=== PATIENT | female | born 2000 | race Caucasian/White ===

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

== ENCOUNTER 2019-07-16 21:02 | Emergency (ER) | payer OTHER, BC ==
[~2019-07-16] VITALS: Ht 172.7 cm; Wt 68.0 kg
[~2019-07-16 21:02] MED LIST: BIRTH CONTROLL; FLUO10
[2019-07-16 21:53] LABS: Source, Urine Clean Catch
[2019-07-16 21:59] LABS: Appearance, Urine Clear (Clear); Bilirubin, Urine Neg (Neg); Blood, Urine 5+ (Neg); Color, Urine Yellow (P-Yellow); Glucose Qualitative, Urine Neg (Neg); Ketones, Urine Neg (Neg); Leukocyte Esterase, Urine Neg (Neg); Nitrite, Urine Neg (Neg); Protein, Urine Neg (Neg); Specific Gravity, Urine 1.005 (1.003-1.022); Urobilinogen, Urine NORM (Normal)
[2019-07-16 22:04] LABS: Bacteria Not Seen /hpf; Red Blood Cells, Urine 25-50 /hpf (0-2); Squamous Epithelial Cells Few /hpf (Few); White Blood Cells, Urine Rare /hpf (0-5)
[2019-07-16 22:06] LABS: BASOPHILS ABSOLUTE AUTO 0.03 K/mm3 (0.00-0.23); BASOPHILS PERCENT AUTO 1 % (0-2); EOSINOPHILS ABSOLUTE AUTO 0.06 K/mm3 (0.00-0.68); EOSINOPHILS PERCENT AUTO 1 % (0-6); Hematocrit 42.6 % (33.0-51.0); Hemoglobin 14.3 g/dL (11.5-16.0); IMMATURE GRAN ABSOLUTE AUTO 0.01 K/mm3 (0.00-0.10); IMMATURE GRAN PERCENT AUTO 0 % (0-1); LYMPHOCYTES PERCENT AUTO 42 % (21-46); MONOCYTES ABSOLUTE AUTO 0.27 K/mm3 (0.16-1.47); MONOCYTES PERCENT AUTO 6 % (4-13); Mean Corpuscular HGB 30.2 pg (26.0-34.0); Mean Corpuscular HGB Conc 33.6 g/dL (31.5-36.5); Mean Corpuscular Volume 90 fL (80-100); Mean Platelet Volume 9.8 fL (9.1-12.4); NEUTROPHILS ABSOLUTE AUTO 2.42 K/mm3 (1.96-9.15); NEUTROPHILS PERCENT AUTO 51 % (41-73); Platelet Count 276 K/mm3 (150-400); RDW Coefficient Variation 11.7 % (11.7-14.2); RDW Standard Deviation 38.5 fL (35.1-46.3); Red Blood Cell Count 4.73 M/mm3 (3.80-5.20); White Blood Cell Count 4.79 K/mm3 (4.00-11.30)
[2019-07-16 22:23] LABS: Anion Gap 5 mmol/L (6-16); Blood Urea Nitrogen 12 mg/dL (8-24); Bun/Creatinine Ratio 15.4 (12.0-20.0); CO2, Blood 28 mmol/L (21-32); Calcium, Blood 9.2 mg/dL (8.5-10.1); Chloride, Blood 106 mmol/L (98-108); Creatinine, Blood 0.78 mg/dL (0.40-1.00); Glomerular Filtration Rate >60 (60-); Glucose, Blood 89 mg/dL (70-99); Potassium, Blood 3.8 mmol/L (3.5-5.5); Sodium, Blood 139 mmol/L (136-145)
== END 2019-07-16 23:45 | disposition home or self-care (01) ==
LOC: ER 21:02
PROVIDERS: Emergency Medicine
DX: T83.39XA Other mechanical complication of intrauterine contraceptive device, initial encounter (principal); N83.201 Unspecified ovarian cyst, right side
CPT/HCPCS: 36415; 58301; 76830; 76856; 80048; 81001; 81025; 85025; 99284-25

== ENCOUNTER → 2020-08-23 | Outpatient (CLI) | payer BC, OTHER ==
[2020-08-26 02:10] LABS: CHLAMYDIA TRACHOMATIS, NAA Negative (Negative)
== END | disposition home or self-care (01) ==
LOC: LAB SHORT 17:35 → LAB EV 17:35
PROVIDERS: Physician Assistant Medical
DX: N89.8 Other specified noninflammatory disorders of vagina (principal); R82.81 Pyuria
CPT/HCPCS: 87070; 87086; 87205; 87491; 87591

== ENCOUNTER → 2020-10-28 | Outpatient (CLI) | payer BC, OTHER ==
[2020-10-29 10:14] LABS: Candida species (DNA Probe) Negative (NEGATIVE); G. vaginalis (DNA Probe) Negative (NEGATIVE); T. vaginalis (DNA Probe) Negative (NEGATIVE)
== END | disposition home or self-care (01) ==
LOC: LAB 18:24 → LAB SHORT 18:24
PROVIDERS: Obstetrics & Gynecology
DX: N89.8 Other specified noninflammatory disorders of vagina (principal)
CPT/HCPCS: 87480; 87510; 87660

== ENCOUNTER → 2021-04-14 | Outpatient (CLI) | payer BC, OTHER | END | disposition home or self-care (01) | LOC: LAB SHORT 19:10 | DX: Z34.03 Encounter for supervision of normal first pregnancy, third trimester (principal) | CPT/HCPCS: 82950 ==

== ENCOUNTER → 2021-05-12 | Outpatient (CLI) | payer BC, OTHER | LOC: LAB SHORT 17:40 | DX: Z34.03 Encounter for supervision of normal first pregnancy, third trimester (principal) | CPT/HCPCS: 87081; 87150 ==

== ENCOUNTER 2021-05-29 19:54 | Inpatient (IN) | payer BC, OTHER ==
[~2021-05-29] VITALS: Ht 172.7 cm; Wt 95.5 kg
[2021-05-29] MEDS ORDERED: PRENATAL TABLE1 EAC2 PO (20:35)
[2021-05-29 20:36] LABS: BASOPHILS ABSOLUTE AUTO 0.02 K/mm3 (0.00-0.23); BASOPHILS PERCENT AUTO 0 % (0-2); EOSINOPHILS ABSOLUTE AUTO 0.03 K/mm3 (0.00-0.68); EOSINOPHILS PERCENT AUTO 1 % (0-6); Hematocrit 29.8 % (33.0-51.0); Hemoglobin 9.8 g/dL (11.5-16.0); IMMATURE GRAN ABSOLUTE AUTO 0.01 K/mm3 (0.00-0.10); IMMATURE GRAN PERCENT AUTO 0 % (0-1); LYMPHOCYTES ABSOLUTE AUTO 1.69 K/mm3 (0.84-5.20); LYMPHOCYTES PERCENT AUTO 26 % (21-46); MONOCYTES ABSOLUTE AUTO 0.41 K/mm3 (0.16-1.47); MONOCYTES PERCENT AUTO 6 % (4-13); Mean Corpuscular HGB Conc 32.9 g/dL (31.5-36.5); Mean Corpuscular Volume 88 fL (80-100); Mean Platelet Volume 11.6 fL (9.1-12.4); NEUTROPHILS ABSOLUTE AUTO 4.23 K/mm3 (1.96-9.15); NEUTROPHILS PERCENT AUTO 66 % (41-73); Platelet Count 226 K/mm3 (150-400); RDW Coefficient Variation 12.5 % (11.7-14.2); RDW Standard Deviation 40.4 fL (35.1-46.3); Red Blood Cell Count 3.38 M/mm3 (3.80-5.20); White Blood Cell Count 6.39 K/mm3 (4.00-11.30)
[2021-05-29] MEDS ORDERED: Calcium Carbon500 MG (20:36)
[2021-05-29] MEDS ORDERED: ONDA4 PO (20:37)
[2021-05-29 21:12] LABS: Influenza A, PCR NEGATIVE (NEGATIVE); Influenza B, PCR NEGATIVE (NEGATIVE); Resp Syncytial Virus, PCR NEGATIVE (NEGATIVE); SARS-Cov-2 (COVID-19) PCR, MMC NEGATIVE (NEGATIVE)
--- NOTE | 2021-05-30 18:14 | NUR ---
PT HAD FULL BLADDER PRIOR TO SHOWERING, PT PASSED BLOOD CLOTS WHILE IN SHOWER AND WAS FIRM WITH FUNDAL MASSAGE.
--- NOTE | 2021-05-31 07:18 | NUR ---
Assumed care Rept from Jeff Bhatti RN, Pt frank cabezas
[2021-05-31] MEDS ORDERED: ACET500 PO (13:59)
[2021-05-31] MEDS ORDERED: Acetaminophen650 M1 PO ×2 (14:00→14:07)
[2021-05-31] MEDS ORDERED: IBUP200 PO (14:07)
--- NOTE | 2021-05-31 16:35 | NUR ---
DISCHARGE TEACHING COMPLETED, QUESTIONS ANSWERED, READY FOR DISCHARGE, WILL CALL WHEN NB IN CAR SEAT AND DAD HAS MOVED CAR AROUND
--- NOTE | 2021-05-31 16:50 | NUR ---
DISCHARGE TO HOME WITH NB
== END 2021-05-31 16:50 | disposition home or self-care (01) | DRG 807 ==
LOC: OBS 19:54 → BC 20:07
PROVIDERS: ADMIT Obstetrics & Gynecology
PROC: 10E0XZZ Delivery of Products of Conception, External Approach (ICD-10-PCS; principal; 2021-05-30)
PROC: 3E0R3BZ Introduction of Anesthetic Agent into Spinal Canal, Percutaneous Approach (ICD-10-PCS; 2021-05-30)
PROC: 00HU33Z Insertion of Infusion Device into Spinal Canal, Percutaneous Approach (ICD-10-PCS; 2021-05-30)
PROC: 10907ZC Drainage of Amniotic Fluid, Therapeutic from Products of Conception, Via Natural or Artificial Opening (ICD-10-PCS; 2021-05-30)
PROC: 0UQMXZZ Repair Vulva, External Approach (ICD-10-PCS; 2021-05-30)
DX: O99.824 Streptococcus B carrier state complicating childbirth (principal); Z37.0 Single live birth; Z3A.39 39 weeks gestation of pregnancy; Z20.822 Contact with and (suspected) exposure to COVID-19; O71.82 Other specified trauma to perineum and vulva; Z79.899 Other long term (current) drug therapy; Z28.21 Immunization not carried out because of patient refusal; Z14.8 Genetic carrier of other disease
CPT/HCPCS: 0241U; 36415; 51702; 85025; 86850; 86900; 86901; A9270; J0290; J1885; J2001; J3010; J3430; J7120

== ENCOUNTER → 2022-04-03 | Outpatient (CLI) | payer BC, OTHER ==
[~2022-04-03] MED LIST changes: +ACET500 PO; +Acetaminophen650 M1 PO; +Calcium Carbon500 MG; +IBUP200 PO; +ONDA4 PO; +PRENATAL TABLE1 EAC2 PO
[2022-04-03 20:30] LABS: Candida species (DNA Probe) Negative (NEGATIVE); G. vaginalis (DNA Probe) Negative (NEGATIVE); T. vaginalis (DNA Probe) Negative (NEGATIVE)
[2022-04-05 07:11] LABS: HIV AB/P24 AG SCREEN Non Reactive (Non Reactive)
[2022-04-06 04:07] LABS: CHLAMYDIA TRACHOMATIS, NAA Negative (Negative)
== END | disposition home or self-care (01) ==
LOC: LAB SHORT 18:00 → LAB 18:00
PROVIDERS: Physician Assistant
DX: Z20.2 Contact with and (suspected) exposure to infections with a predominantly sexual mode of transmission (principal)
CPT/HCPCS: 86592; 86695; 86696; 87070; 87205; 87389; 87480; 87491; 87510; 87591; 87660

== ENCOUNTER → 2022-09-06 | Outpatient (CLI) | payer BC, OTHER | END | disposition home or self-care (01) | LOC: LAB 12:00 → LAB SHORT 12:00 | DX: L08.0 Pyoderma (principal) | CPT/HCPCS: 87070; 87205 ==

== ENCOUNTER → 2023-01-08 | Outpatient (CLI) | payer BC, OTHER | LOC: LAB 08:58 → LAB SHORT 08:58 | DX: L08.0 Pyoderma (principal) | CPT/HCPCS: 87070; 87205 ==

== ENCOUNTER 2023-04-18 10:55 | Day surgery (SDC) | payer BC, OTHER ==
[~2023-04-18] VITALS: Ht 170.2 cm; Wt 75.5 kg
[~2023-04-18 10:55] MED LIST changes: +BUPR100; +ESTROSTEP FE PO
--- NOTE | 2023-04-18 11:39 | NUR ---
04/18/23 1139 Roslyn Kohler PT COMFORTABLE IN BED. NO QUESTIONS OR CONCERNS AT THIS TIME. CALL LIGHT WITHIN REACH. PT HAS PERSONAL PHONE.
--- NOTE | 2023-04-18 13:26 | NUR ---
04/18/23 1326 Castro Rubalcava ROPIVACAINE 0.5% 20 MLS MIXED & VERIFIED W/ EPI 0.10 ML (1MG/ML), PER ORDER, TO MAKE ROPIVACAINE 0.5% 1:200,000 FOR INJECTION AT OPSITE BY DR GALICIA.
[2023-04-18 14:32] VITALS: BP 125/76
--- NOTE | 2023-04-18 15:29 | NUR ---
04/18/23 1529 Harvey Osman IV REMOVED INTACT. SITE WNL.
== END 2023-04-18 15:15 | disposition home or self-care (01) ==
LOC: ORSCSDS 10:55
PROVIDERS: Podiatrist Foot & Ankle Surgery
PROC: 0QSN04Z Reposition Right Metatarsal with Internal Fixation Device, Open Approach (ICD-10-PCS; principal; 2023-04-18 12:30)
DX: M20.5X1 Other deformities of toe(s) (acquired), right foot (principal); M20.11 Hallux valgus (acquired), right foot
CPT/HCPCS: C1713; C1769; J0171; J0690; J1885; J2001; J2250; J2704; J2795; J3010; J7120

== ENCOUNTER → 2023-05-24 | Outpatient (CLI) | payer BC, OTHER ==
[2023-05-26 21:47] LABS: HSV 1 SUBTYPE BY PCR Not Detected; HSV 2 SUBTYPE BY PCR Not Detected; HSV SUBTYPE SOURCE SKIN
== END ==
LOC: LAB 15:33 → LAB SHORT 15:33
PROVIDERS: Dermatology Dermatopathology
DX: R21 Rash and other nonspecific skin eruption (principal)
CPT/HCPCS: 87529

== ENCOUNTER → 2023-09-28 | Outpatient (CLI) | payer BC, OTHER | END | disposition home or self-care (01) | LOC: LAB 17:33 → LAB SHORT 17:33 | DX: H60.11 Cellulitis of right external ear (principal) | CPT/HCPCS: 87070; 87205 ==

== ENCOUNTER → 2024-02-12 | Outpatient (CLI) | payer BC, OTHER ==
[2024-02-12 15:41] LABS: Bacterial Vaginosis PCR Negative (NEGATIVE); Candida Group, PCR NOT DETECTED (NOT DETECT); Candida glabrata-krusei, PCR NOT DETECTED (NOT DETECT)
[2024-02-12 16:15] LABS: Chlamydia Trachomatis Vaginal NOT DETECTED (NOT DETECT); Neisseria Gonorrhoea Vaginal NOT DETECTED (NOT DETECT)
== END ==
LOC: LAB 10:53 → LAB SHORT 10:53
PROVIDERS: Obstetrics & Gynecology
DX: N89.8 Other specified noninflammatory disorders of vagina (principal); Z12.4 Encounter for screening for malignant neoplasm of cervix
CPT/HCPCS: 87481; 87491; 87591; 87661; 87801